=== PATIENT | female | born 1995 | race Caucasian/White ===

== ENCOUNTER 2022-03-09 21:12 | Emergency (ER) | payer BC ==
[~2022-03-09 21:12] MED LIST: COLACE 100MG C100 MG PO; IBUPROFEN600 MG PO; LORTAB 5-325 M1 EACH PO; PRENATAL VITAM1 EAC3 PO
== END 2022-03-10 00:35 | disposition home or self-care (01) ==
LOC: ER1 21:12
DX: S93.402A Sprain of unspecified ligament of left ankle, initial encounter (principal); Z90.49 Acquired absence of other specified parts of digestive tract; Z88.0 Allergy status to penicillin; X50.1XXA Overexertion from prolonged static or awkward postures, initial encounter; Y93.02 Activity, running; Y92.096 Garden or yard of other non-institutional residence as the place of occurrence of the external cause
CPT/HCPCS: 73610; 73630; 99283